=== PATIENT | male | born 1990 | race Hispanic/Latino ===

== ENCOUNTER 2016-12-21 00:40 | Emergency (ER) | payer OTHER ==
[~2016-12-21] VITALS: Ht 167.6 cm; Wt 79.5 kg
[~2016-12-21 00:40] MED LIST: NPR500T PO
[2016-12-21 00:47] VITALS: BP 125/85; PULSE 102; RESP 18; O2SAT 100
--- NOTE | 2016-12-21 01:07 | ED.REPORT ---
HPI- Male Date of Service Dec 21, 2016 ED Provider: Silviano Live DO Pt is an otherwise healthy 26 year old male who presents to the ED complaining of intermittent bilateral testicular pain onset 1 week ago. The pt denies discharge, injury, and any other symptoms. He reports that he is sexually active , but he denies a history of STDs. Nursing Notes Stated Complaint: TESTICLE AND PENIS PAIN Chief Complaint: Male Abdominal Pain Nursing Notes Reviewed: Yes Allergies: Coded Allergies: No Known Allergies (Unverified , 03/30/16) Scheduled PRN Naproxen (Naproxen) 500 Mg Tab 500 MG PO BID PRN PRN For Pain General Time Seen by MD: 01:04 Chief Complaint Testicle painful left Hx Obtained From: Patient Arrived By: Walk-in Onset Occurred: 1 week ago Symptom Duration: Intermittent Location: : Penis Quality: Painful Severity: Current: Moderate Severity: Maximum: Moderate Recent Healthcare: No recent doctor visit, No recent hospitalization Similar Sx Previous: No Past Medical History Past Medical History Denies Denies: Congestive heart failure, Diabetes mellitus, Hypertension Past Surgical History Denies Family History Noncontributory Smoking History Former Smoker Social History Alcohol Use: "Social" Drug Use: THC Other Social History: Good social support, Lives with children, Local resident Ambulatory Status Independent Review of Systems Denies penile injury Male: Reports Testicular pain, Denies Penile discharge, Denies Penile lesion Complete sys rev & neg: except as marked. Physical Exam Initial Vital Signs Vital Signs (First) Date Time Temp Pulse Resp B/P Pulse Ox O2 Delivery O2 Flow Rate FiO2 12/21/16 00:47 36.5 102 18 125/85 100 Room Air Initial VS: Reviewed Head / Eyes: Atraumatic, Normocephalic Neck: Supple, Full range of motion Respiratory: Breath sounds normal, Clear to auscultation, No respiratory distress Cardiovascular: Regular rate & rhythm, Heart sounds normal, Intact distal pulses Abdomen / GI: Soft, Non-tender Extremities: Vascular intact, Neuro intact Skin: Warm, Dry, No cyanosis Neurologic: Alert, Oriented, Nonfocal Psychiatric: Mood/affect normal, Behavior normal MALE : Left testicular pain, no penile lesions. General/Constitutional: Awake, Alert, Cooperative, Not toxic appearing Interpretation & Diagnostics Lab Results Interpretation Test 12/21/16 01:15 Urine Color Yellow (YELLOW) Urine Appearance Clear (CLEAR,HAZY) Urine pH 7.0 (5.0-8.0) Urine Specific Cullen 1.010 (1.003-1.035) Urine Protein Negativemg/dL (NEG,TRACE) Urine Glucose (UA) Negativemg/dL (NEGATIVE) Urine Ketones Negativemg/dL (NEGATIVE) Urine Occult Blood Negative (NEGATIVE) Urine Nitrite Negative (NEGATIVE) Urine Bilirubin Negative (NEGATIVE) Urine Urobilinogen Normalmg/dL (NORMAL) Urine Leukocyte Esterase Negative (NEGATIVE) Urine RBC 0-2/hpf (0-2) Urine WBC 0-5/hpf (0-5) Urine Epithelial Cells Occasional/hpf (NONE-MOD) Urine Crystals None seen (NONE SEEN) Urine Bacteria None/hpf (NONE-FEW) Urine Hyaline Casts None/lpf (NONE) Urine Granular Casts None seen (NONE SEEN) Urine Waxy Casts None seen (NONE SEEN) Urine Red Blood Cell Casts None seen (NONE SEEN) Urine White Blood Cell Casts None seen (NONE SEEN) Urine Mucus None seen (None Seen) Urine Trichomonas None seen (NONE SEEN) Urine Yeast None (NONE SEEN) Urinalysis Comment Amorphous sediment Urine Culture Reflexed Not indicated Urinalysis Interpretation Urinalys reviewed and NL US Renal/Urinary Tract Exam Performed by: [facility] Exam Type: Diagnostic (essentially normal left testicular ultrasound and right testicular ultrasound. No evidence of abscess or torsion.) Re-Eval/Medical Decision Med Decision/Clinical Course Testicular pain and is sexually active 26-year-old male. Section transmitted infections high likelihood. We will treat empirically and send out the GEN probe. Ultrasound was reassuring. No signs of torsion or abscess. Recommend close outpatient follow-up. Source of Hx: Old records Re-Evaluation/Progress : Time of Eval: 01:30 Re-Evaluation/Progress Note: Pt rechecked. Informed pt of plan for discharge. Pt understands and agrees with plan for discharge. F/U instructions and RTER warnings given. All questions addressed. Counseled Regarding: Diagnosis, Lab results, Need for follow-up, When/why to return to ED Discharge & Departure Shift Change Sign-Out Response to Therapy: Improved Impression: Primary Impression: Testicular pain, left Disposition: Home Discharge Condition All VS Reviewed: Yes Condition: Stable Patient Instructions: Orchitis (ED) Additional Instructions: Your ultrasound was reassuring. Take Doxycycline 2x daily for 7 days. Take Motrin 800 mg every 8 hours for the pain. Follow up with Dr. Annad. Call tomorrow to set up follow-up next available appointment. If the STD test comes back positive, you'll need to have your partner(s) tested. Return to the Emergency Department for any new or worsening symptoms. Referrals: Amrik Marinelli MD (PCP) Valentine Anand MD Attestation Portions of this note were transcribed by Tragn Perry. I, Dr. Shore personally performed the history, physical exam and medical decision-making; I reviewed and confirmed the accuracy of the information in the transcribed note. Signed by: Renee Pollack, 12/21/16 and 02:30. copies to: Valentine Anand MD; Amrik Marinelli MD, Todd P DO Dec 21, 2016 01:07 Trang Stephens Dec 21, 2016 01:14
[2016-12-21 01:39] LABS: APPEARANCE,URINE CLEAR (CLEAR,HAZY); COLOR,URINE YELLOW (YELLOW); OCCULT BLOOD,URINE NEGATIVE (NEGATIVE); UROBILINOGEN,URINE NORMAL (NORMAL)
[2016-12-21] MEDS ORDERED: cefTRIAXone Inj 250 MG, Lidocaine PF 1% Inj 0.9 ML in Syringe 1 EACH IM ONE (01:45)
[2016-12-21 02:55] VITALS: BP 121/74; PULSE 90; RESP 14; O2SAT 100
--- NOTE | 2016-12-21 08:56 | DRSVH ---
PROCEDURE: US TESTICULAR SONOGRAM WITH DOPPLER INDICATIONS: testicular pain TECHNIQUE: Real-time scanning was performed of the scrotum and testicles, with image documentation. Color and p ulse Doppler interrogation was performed of both testicles. COMPARISON: None. FINDINGS: Right: Testicle is normal in size at 4.1 x 2.2 x 2.7 cm, and homogenous in echotexture. Microcalcif ications present. Epididymis is normal in overall size and morphology. No hydrocele or varicoceles. Overlying scrotal skin is normal in thickness. Left: Testicle is normal in size at 3.9 x 1.9 x 2.4 cm, and homogeneous in echotexture. Fications p resent. Epididymis is normal in overall size and morphology. No hydrocele or varicoceles. Overlyin g scrotal skin is normal in thickness. Doppler: Color and pulse Doppler demonstrate normal and symmetric arterial flow in both testicles. IMPRESSION: No source for right scrotal pain identified. Multiple bilateral microcalcifications seen otherwise the testicles are normal. If there is no histo ry of underlying malignancy or predisposing factors which would increase the patient's risk for devel opment of neoplasm, recommend patient education on self-examination otherwise no followup ultrasound as necessary. Dictated by: Iam CRUZ Interpreted: Radha Aquino MD on 12/21/2016 at 8:53 Transcribed by: ALEN on 12/21/2016 at 8:55 Approved by: Radha Aquino MD, PhD on 12/21/2016 at 9:46
== END 2016-12-21 02:57 | disposition home or self-care (01) ==
LOC: SED 00:40
DX: N50.812 Left testicular pain (principal); Z87.891 Personal history of nicotine dependence
CPT/HCPCS: 76870; 81000; 87491; 87591; 93975; 96372; 99285; J0696